=== PATIENT | male | born 1980 | race Caucasian/White ===

== ENCOUNTER 2021-03-05 07:15 | Emergency (ER) | payer OTHER ==
[2021-03-05 08:25] LABS: BASOPHIL 0.7 % (0-2); EOSINOPHIL 0 % (0-5); HCT 44.9 % (42.0-52.0); HGB 14.9 g/dl (13.2-18.0); LYMPHOCYTE 9.7 % (15-48); MCHC 33.2 g/dL (32.0-36.0); MCV 81.3 fL (78.0-100.0); MONOCYTE 7.5 % (0-12); MPV 9.2 fL (6.0-9.5); NEUTROPHIL 81.5 % (41-80); NRBC 0; PLT 381 K/uL (150-400); RBC 5.52 M/uL (4.70-6.00); RDW 14.2 % (11.5-14.0); WBC 10.6 K/uL (4.0-10.5)
[2021-03-05 08:35] LABS: ALBUMIN 3.6 g/dL (3.4-5.0); BILIRUBIN - TOTAL 0.4 mg/dL (0.2-1.0); BUN/CREAT RATIO (CALC) 11.6 RATIO; CREATININE 0.95 mg/dL (0.67-1.17); GLOBULIN (CALCULATION) 4.1 g/dL; POTASSIUM 4.1 mmol/L (3.5-5.1); TOTAL PROTEIN 7.7 g/dL (6.4-8.2)
[2021-03-05 11:20] LABS: BILIRUBIN NEGATIVE (NEGATIVE); BLOOD NEGATIVE Ery/uL (NEGATIVE); CLARITY CLEAR (CLEAR); COLOR YELLOW (YELLOW); GLUCOSE (U) NORMAL (NORMAL); LEUKOCYTES NEGATIVE Leu/uL (NEGATIVE); NITRITE NEGATIVE (NEGATIVE); PROTEIN NEGATIVE (NEGATIVE); UROBILINOGEN 0.2 mg/dL (0.2-1.0)
[2021-03-05 11:24] LABS: MARIJUANA (THC) NEGATIVE (NEGATIVE)
[2021-03-05 11:25] LABS: AMPHETAMINES NEGATIVE (NEGATIVE); BARBITURATES NEGATIVE (NEGATIVE); ECSTASY (MDMA) NEGATIVE (NEGATIVE); METHADONE NEGATIVE (NEGATIVE); OPIATES NEGATIVE (NEGATIVE); OXYCODONE NEGATIVE (NEGATIVE)
== END 2021-03-05 11:58 | disposition home or self-care (01) ==
LOC: FER 07:15
PROVIDERS: Internal Medicine
DX: R10.11 Right upper quadrant pain (principal); R10.31 Right lower quadrant pain; R11.2 Nausea with vomiting, unspecified; M54.9 Dorsalgia, unspecified
CPT/HCPCS: 36415; 80053; 80305; 81003; 82150; 83690; 85025; J7030; Q9967